=== PATIENT | female | born 1975 | race Caucasian/White ===

== ENCOUNTER → 2016-04-10 | Day surgery (SDC) | payer OTHER ==
--- NOTE | 2016-04-11 15:50 | PATH ---
Cytology Non-Gynecological Report Patient Name: MEG LOVE [facility]. Rec. #: [id number] /Age/Gender: 1975 (Age: 40) / F Account: [id number] Location: RADIOLOGY Taken: 04/10/2016 Received: 04/10/2016 Reported: 04/24/2016 Physicians: Jag Anglin M.D. Specimen(s) Received LEFT THYROID FNA Clinical History Left thyroid nodule, 1.00 x 0.80 x 0.78 cm Final Diagnosis THYROID GLAND, LEFT LOBE, US GUIDED FINE NEEDLE ASPIRATION BIOPSY: SATISFACTORY FOR EVALUATION. NO MALIGNANT CELLS IDENTIFIED. CONSISTENT WITH NODULAR HYPERPLASIA (BENIGN FOLLICULAR NODULE, BETHESDA CATEGORY II, BENIGN), SEE COMMENT. Comment: The smears and the cell block show clusters of bland-appearing follicular epithelial cells and colloid. Electronically Signed Tony Salguero M.D. Gross Description Received are four air dried smears, four smears in 95% alcohol, and 20 cc of bloody fluid in formalin. Four diff-quik stained slides, four Pap stained slides and one cell block are made.
== END | disposition home or self-care (01) ==
LOC: JRADIR 09:12
PROVIDERS: ATTEND Internal Medicine Endocrinology, Diabetes & Metabolism
PROC: 0G9G3ZX Drainage of Left Thyroid Gland Lobe, Percutaneous Approach, Diagnostic (ICD-10-PCS; principal; 2016-04-10)
PROC: BG44ZZZ Ultrasonography of Thyroid Gland (ICD-10-PCS; 2016-04-10)
DX: E04.1 Nontoxic single thyroid nodule (principal)
CPT/HCPCS: 76942; 88173; 88305-TC

== ENCOUNTER 2017-12-15 11:15 | Inpatient (IN) | payer OTHER ==
--- NOTE | 2017-12-15 15:59 | HP ---
Past Medical History - Primary Care Physician PCP:: Salas Davison - Admission Chief Complaint: pregnncy 40 weeks, AMA, labor History of Present Illness: 42 yo f g 2 p1001 edc by sono 12/13/17 in labor cx 4 cm 75 vx -3 mi, bulging, fhr cat 1, irregular contraction History Source: Patient, Significant Other Limitations to Obtaining History: No Limitations, Language Barrier - Past Medical History ...: 2 ...Para: 1 ...Term: 1 ...: 0 ...Spon : 0 ...Induced : 0 ...LMP: 02/22/17 ... Weeks Gestation by Dates: 42.2 ...EDC by Dates: 11/29/17 ...EDC by Sono: 12/13/17 - Past Surgical History Hx Myomectomy: No Hx Transabdominal Cerclage: No - Smoking History Smoking history: Never smoked Have you smoked in the past 12 months: No Aproximately how many cigarettes per day: 0 - Alcohol/Substance Use Hx Alcohol Use: No - Social History Usual Living Arrangement: Yes: With Spouse History of Recent Travel: No Home Medications - Allergies Allergies/Adverse Reactions: Allergies Allergy/AdvReac Type Severity Reaction Status Date / Time No Known Allergies Allergy Verified 12/15/17 12:19 - Home Medications Home Medications: Ambulatory Orders Prenat 115/Iron Fum/Folic/Dss [ 19 Tablet] 1 each PO DAILY 09/01/17 Ferrous Sulfate [Feosol] 325 mg PO 12/15/17 Review of Systems - Review of Systems Constitutional: reports: No Symptoms Eyes: reports: No Symptoms HENT: reports: No Symptoms Neck: reports: No Symptoms Cardiovascular: reports: No Symptoms Respiratory: reports: No Symptoms Gastrointestinal: reports: No Symptoms Genitourinary: reports: No Symptoms Breasts: reports: No Symptoms Reported Musculoskeletal: reports: No Symptoms Integumentary: reports: No Symptoms Neurological: reports: No Symptoms Endocrine: reports: No Symptoms Hematology/Lymphatic: reports: No Symptoms Psychiatric: reports: No Symptoms Physical Exam - Maternity Vital Signs: Vital Signs Temperature 98.2 F 12/15/17 12:15 Pulse Rate 74 12/15/17 12:15 Respiratory Rate 18 12/15/17 12:15 Blood Pressure 131/84 12/15/17 12:15 O2 Sat by Pulse Oximetry (%) Constitutional: Yes: Well Nourished, No Distress, Calm Eyes: Yes: WNL, Conjunctiva Clear, EOM Intact HENT: Yes: WNL, Atraumatic, Normocephalic Neck: Yes: WNL, Supple, Trachea Midline Cardiovascular: Yes: WNL, Regular Rate and Rhythm Breast(s): Yes: WNL - Abdominal Exam/OB Fundal Height: 40 Number of Fetuses: Single Presentation: Vertex Contractions: Yes Regularity: Regular Intensity: Mod/Strong Monitor Mode: External Heart Rate Location: [facility] Category: I Accelerations: Uniform Decelerations: None - Vaginal Exam/OB Vaginal Bleediing: Bloody Show Speculum Exam: No Dilatation (cm): 4 cm Effacement (%): 70 Amniotic Membrane Status: Bulging Station: -3 - Physical Exam Musculoskeletal: Yes: WNL Extremities: Yes: WNL Edema: Yes Edema: LLE: Trace, RLE: Trace Deep Tendon Reflex Grade: Normal +2 Psychiatric: Yes: Alert Problem List - Problems (1) 40 weeks gestation of Code(s): Z3A.40 - 40 WEEKS GESTATION OF (2) Labor established Code(s): UEU1548 - (3) Advanced maternal age (AMA), 40 years or greater Code(s): QJD3052 - Assessment/Plan admit, for vaginal delivery FM pain management
[2017-12-15] MEDS ORDERED: PROMETHAZINE HCL 25 MG/1 ML VIAL IVPB ONE (16:01)
[2017-12-15] MEDS ORDERED: BUTORPHANOL TARTRATE 1 MG/ML VIAL IVPUSH ONE ×2 (16:01→20:22)
[2017-12-15 16:04] VITALS: BMI 34.5
[2017-12-15 16:04] LABS: BASO % 0.3 % (0-2.0); EOS % 0.5 % (0-4.5); HEMATOCRIT 31.8 % (32.4-45.2); HEMOGLOBIN 10.5 GM/dL (10.7-15.3); LYMPH % 13.6 % (8-40); MCH 24.6 pg (25.7-33.7); MCHC 32.9 g/dl (32.0-36.0); MEAN CELL VOLUME 74.7 fl (80-96); MEAN PLT VOLUME 8.5 fl (7.5-11.1); MONO % 4.4 % (3.8-10.2); NEUT % 81.2 % (42.8-82.8); PLATELET COUNT 322 K/MM3 (134-434); RBC 4.26 M/mm3 (3.60-5.2); RDW 17.1 % (11.6-15.6); WHITE BLOOD COUNT 8.4 K/mm3 (4.0-10.0)
[2017-12-15] MEDS ORDERED: DEXTROSE 5%-LACTATED RINGERS 1,000 ML IV SCH (16:15)
[2017-12-15 16:25] LABS: INR 0.92 (0.83-1.09); PROTHROMBIN TIME (PATIENT) 10.8 SEC (9.7-13.0)
[2017-12-15 16:38] LABS: ANION GAP 8 MMOL/L (8-16); BLOOD UREA NITROGEN 14 mg/dL (7-18); CALCIUM 9.1 mg/dL (8.5-10.1); CHLORIDE 108 mmol/L (98-107); CO2 19 mmol/L (21-32); CREATININE 0.4 mg/dL (0.55-1.3); GLUCOSE,RANDOM 76 mg/dL (74-106); SODIUM 135 mmol/L (136-145)
[2017-12-15] MEDS ORDERED: BUTORPHANOL TARTRATE 1 MG/ML VIAL ONE ×2 (20:08)
[2017-12-15] MEDS ORDERED: OXYTOCIN 30 UNITS in 0.9% NS 30 UNIT/500 ML INFUS.BAG IVPB ONE (20:08)
[2017-12-15] MEDS ORDERED: PROMETHAZINE HCL 25 MG/1 ML VIAL ONE (20:09)
[2017-12-15] MEDS ORDERED: PROMETHAZINE HCL 25 MG/1 ML VIAL IVPUSH ONE (20:22)
--- NOTE | 2017-12-15 20:25 | PN ---
Progress Note (short form) - Note Progress Note: cx 4 cm 80 vx -2 AROM, clear, fhr cat 1, irregular contraction, advised pitocin , rba discussed with patient and her Problem List - Problems (1) 40 weeks gestation of Code(s): Z3A.40 - 40 WEEKS GESTATION OF (2) Labor established Code(s): [id number] - (3) Advanced maternal age (AMA), 40 years or greater Code(s): ZOM7993 -
[2017-12-15] MEDS ORDERED: OXYTOCIN 30 UNITS in 0.9% NS 30 UNIT/500 ML INFUS.BAG IVPB SCH (20:30)
[2017-12-15] MEDS ORDERED: OXYTOCIN 20 UNITS in 0.9% NS 20 UNIT/1,000 ML INFUS.BAG IV ONE (22:25)
--- NOTE | 2017-12-15 22:56 | PN ---
Progress Note (short form) - Note Progress Note: cx full 100 vx 2+ ,vx mr, fhr cat Problem List - Problems (1) 40 weeks gestation of Code(s): Z3A.40 - 40 WEEKS GESTATION OF (2) Labor established Code(s): WQO1907 - (3) Advanced maternal age (AMA), 40 years or greater Code(s): XOP0423 -
[2017-12-15] MEDS ORDERED: LIDOCAINE HCL 1% PRESERVATIVE FREE - 30ML VIAL ONE (23:03)
[2017-12-15] MEDS ORDERED: D5W-LR W/ 20 UNITS OXYTOCIN 1,000 ML IV SCH (23:45)
[2017-12-15] MEDS ORDERED: OXYTOCIN 20 UNITS in 0.9% NS 20 UNIT/1,000 ML INFUS.BAG IV SCH (23:45)
[2017-12-15] MEDS ORDERED: METHYLERGONOVINE MALEATE 0.2 MG/1 ML AMP IM PRN (23:52)
[2017-12-15] MEDS ORDERED: BENZOCAINE 28 GM HEMORRHOIDAL OINTMENT TP PRN (23:52)
[2017-12-15] MEDS ORDERED: BISACODYL 10 MG SUPP.RECT RC PRN (23:52)
[2017-12-15] MEDS ORDERED: WITCH HAZEL 50% (TUCKS) 40 PAD/JAR PAD TP PRN (23:52)
[2017-12-16] MEDS ORDERED: OXYTOCIN 20 UNITS in 0.9% NS 20 UNIT/1,000 ML INFUS.BAG IV ONE (00:33)
[2017-12-16] MEDS ORDERED: IBUPROFEN 600 MG TABLET (FP) PO ONE (00:34)
[2017-12-16] MEDS ORDERED: ACETAMINOPHEN 325 MG TABLET (FP) ONE (00:34)
[2017-12-16] MEDS: ACETAMINOPHEN 325 MG TABLET (FP) PO PRN ×3 (00:35→17:53)
[2017-12-16] MEDS: IBUPROFEN 600 MG TABLET (FP) PO PRN ×3 (00:35→17:53)
[2017-12-16] MEDS: BENZOCAINE 20% 57 GM BOTTLE TP PRN (02:51)
--- NOTE | 2017-12-16 07:54 | PN ---
Progress Note (short form) - Note Progress Note: ppd 1 ,doing well, no c/o , voids ok , no excess vaginal bleeding CBC, BMP 12/15/17 15:49 12/15/17 15:49 Last Vital Signs Temp Pulse Resp BP Pulse Ox 98.0 F 83 18 120/62 100 12/16/17 06:00 12/16/17 06:00 12/16/17 06:00 12/16/17 06:00 12/16/17 01:00 abdomen soft , no distension , no cva uterus firm, non tender lochia mild plan cbc today, plan for d/c home in am Problem List - Problems (1) 40 weeks gestation of Code(s): Z3A.40 - 40 WEEKS GESTATION OF (2) Labor established Code(s): [id number] - (3) Advanced maternal age (AMA), 40 years or greater Code(s): [id number] -
[2017-12-16 08:27] LABS: BASO % 0.2 % (0-2.0); HEMATOCRIT 25.8 % (32.4-45.2); HEMOGLOBIN 8.3 GM/dL (10.7-15.3); LYMPH % 8.9 % (8-40); MCH 24.1 pg (25.7-33.7); MEAN CELL VOLUME 75.4 fl (80-96); MEAN PLT VOLUME 8.1 fl (7.5-11.1); MONO % 5.4 % (3.8-10.2); NEUT % 85.5 % (42.8-82.8); PLATELET COUNT 253 K/MM3 (134-434); RBC 3.42 M/mm3 (3.60-5.2); RDW 16.8 % (11.6-15.6); WHITE BLOOD COUNT 12.6 K/mm3 (4.0-10.0)
[2017-12-16] MEDS: FERROUS SO4 325 MG TABLET (FP) PO SCH ×2 (09:25→22:04)
[2017-12-16] MEDS: PRENATAL VITAMINS W/ FOLIC ACID TABLET (FP) PO SCH (09:25)
[2017-12-16] MEDS ORDERED: SENNOSIDES/DOCUSATE COMBO (SENNA PLUS) TABLET (UD) PO PRN (22:00)
[2017-12-17] MEDS: BENZOCAINE 20% 57 GM BOTTLE TP PRN (08:54)
[2017-12-17 10:44] VITALS: BP 110/68; PULSE 85; TEMP 98.7
[2017-12-17] MEDS: PRENATAL VITAMINS W/ FOLIC ACID TABLET (FP) PO SCH (11:02)
[2017-12-17] MEDS: FERROUS SO4 325 MG TABLET (FP) PO SCH (11:02)
--- NOTE | 2017-12-17 13:01 | DS ---
Physical Exam-IV TECHNICIAN Vital Signs: Vital Signs Temperature 98.7 F 12/17/17 10:00 Pulse Rate 85 12/17/17 10:00 Respiratory Rate 20 12/17/17 10:00 Blood Pressure 110/68 12/17/17 10:00 O2 Sat by Pulse Oximetry (%) 100 12/16/17 01:00 Constitutional: Yes: Well Nourished, No Distress, Calm Eyes: Yes: WNL, Conjunctiva Clear, EOM Intact HENT: Yes: WNL, Atraumatic, Normocephalic Neck: Yes: WNL, Supple, Trachea Midline Cardiovascular: Yes: WNL, Regular Rate and Rhythm Respiratory: Yes: WNL, Regular, CTA Bilaterally Gastrointestinal: Yes: WNL ...Rectal Exam: Yes: WNL Renal/: Yes: WNL ....Post : Yes: Uterus firm, Uterus non-tender, Slight lochia rubra Breast(s): Yes: WNL Musculoskeletal: Yes: WNL Extremities: Yes: WNL Edema: No Integumentary: Yes: WNL Neurological: Yes: WNL, Alert, Oriented ...Motor Strength: WNL Psychiatric: Yes: WNL, Alert, Oriented Labs: CBC, BMP 12/16/17 07:40 12/15/17 15:49 Delivery - Delivery Vaginal Delivery: Spontaneous (no complication) Type of Anesthesia: Local Episiotomy/Laceration: 1st degree EBL (cc): 300 Delivery, Single - Stages of Labor Date 1st Stage Initiatied: 12/15/17 Time 1st Stage Initiated: 19:30 Date 2nd Stage Initiated: 12/15/17 Time 2nd Stage Initiated: 23:00 Date of Delivery: 12/15/17 Time of Delivery: 23:28 Time Placenta Delivered: 23:30 Placenta: Yes: Spontaneous - Condition of Searchlight Operator/Communications Department Chair Present: No Infant Gender: Female Weight: 7 lb 5 oz Position: Left, OA Total Hours ROM (Hrs/Mins): 4 hours - 1 Minute Total Score: 9 5 Minutes Total Score: 9 - Feeding Plan Initial Plan: Elected not to breastfeed exclusively throughout hospitalization Discharge Summary Reason For Visit: LABOR Procedures: Principal: Hospital Course: no complication Condition: Good - Instructions Diet, Activity, Other Instructions: regular diet, follow up [facility] 4 weeks, if ever, pain, heavy vaginal bleeding call MD Disposition: HOME - Home Medications Comprehensive Discharge Medication List: Ambulatory Orders Prenat 115/Iron Fum/Folic/Dss [ 19 Tablet] 1 each PO DAILY 09/01/17 Ferrous Sulfate [Feosol] 325 mg PO 12/15/17
== END 2017-12-17 12:56 | disposition home or self-care (01) | DRG 560 ==
LOC: JDEL 11:15 → JLDR 15:00 → J3W 12-16 02:44
PROVIDERS: ADMIT Obstetrics & Gynecology; ATTEND Obstetrics & Gynecology
PROC: 10E0XZZ Delivery of Products of Conception, External Approach (ICD-10-PCS; principal; 2017-12-15)
PROC: 0HQ9XZZ Repair Perineum Skin, External Approach (ICD-10-PCS; 2017-12-15)
DX: O48.0 Post-term pregnancy (principal); O70.0 First degree perineal laceration during delivery; Z3A.40 40 weeks gestation of pregnancy; Z37.0 Single live birth
CPT/HCPCS: 36415; 59409; 80048; 85025; 85610; 85730; 86593; 86850; 86900; 86901; 90686; G0008